=== PATIENT | male | born 1995 | race American Indian/Alaskan Native ===

== ENCOUNTER 2018-01-08 12:56 | Emergency (ER) | payer SELFPAY ==
[2018-01-08 17:28] VITALS: BP 125/83
--- NOTE | 2018-01-08 19:01 | Emergency Department Report ---
ED Male HPI - General Chief complaint: Urogenital-Male Stated complaint: CHECK UP Time Seen by Provider: 01/08/18 18:13 Source: patient Mode of arrival: Ambulatory Limitations: No Limitations - History of Present Illness Initial comments: This is a 22-year-old male patient here complaining of lump to the scrotal area 2 weeks. He denies any pain. He states that he is having clear discharge and he wants to be treated for STD. He does have unsafe sex but does not know if the person that he was with has similar symptoms. Denies any pain. Denies any nausea or vomiting. Denies any abdominal back pain. Denies any fever or chills. Patient reports he has asthma as a child. No [id number] medication taken any tear to be evaluated. MD Complaint: testicle swelling, penile discharge Onset/Timin -: week(s) Location: right testicle Radiation: none Severity scale (0 -10): 0 new sexual partner discharge, mass, other (testicular swelling). denies: rash, urinary retention, blood in urine, dysuria, fever, nausea/vomiting, incontinence - Related Data Sexually active: Yes Previous Rx's Medication Instructions Recorded Last Taken Type Ciprofloxacin HCl [Ciprofloxacin 500 mg PO Q12HR 10 Days #20 tab 01/08/18 Unknown Rx TAB] Allergies Allergy/AdvReac Type Severity Reaction Status Date / Time No Known Allergies Allergy Unverified 01/08/18 13:22 ED Review of Systems ROS: Stated complaint: CHECK UP Other details as noted in HPI Constitutional: denies: chills, fever ENT: denies: throat pain Respiratory: denies: cough, shortness of breath, SOB with exertion, SOB at rest , wheezing Cardiovascular: denies: chest pain, palpitations, edema, syncope Gastrointestinal: denies: abdominal pain, nausea, vomiting, diarrhea, constipation, hematemesis, hematochezia Genitourinary: discharge, testicular mass. denies: urgency, dysuria, frequency , hematuria, testicular pain Musculoskeletal: denies: back pain, joint swelling, arthralgia, myalgia Skin: denies: rash, lesions Neurological: denies: headache ED Past Medical Hx - Past Medical History Previous Medical History?: Yes Hx Asthma: Yes (as a child) - Surgical History Past Surgical History?: No - Family History Family history: no significant - Social History Smoking Status: Never Smoker Substance Use Type: None - Medications Home Medications: Home Medications Medication Instructions Recorded Confirmed Last Taken Type Ciprofloxacin HCl [Ciprofloxacin 500 mg PO Q12HR 10 Days #20 tab 01/08/18 Unknown Rx TAB] ED Physical Exam - General Limitations: No Limitations General appearance: alert, in no apparent distress - Head Head exam: Present: atraumatic, normocephalic, normal inspection - Eye Eye exam: Present: normal appearance, PERRL, EOMI Pupils: Present: normal accommodation - ENT ENT exam: Present: normal exam, normal orophraynx, mucous membranes moist - Neck Neck exam: Present: normal inspection, full ROM, other (no C-spine tenderness). Absent: tenderness, lymphadenopathy - Respiratory Respiratory exam: Present: normal lung sounds bilaterally. Absent: respiratory distress, chest wall tenderness - Cardiovascular Cardiovascular Exam: Present: regular rate, normal rhythm, normal heart sounds. Absent: systolic murmur, diastolic murmur - GI/Abdominal GI/Abdominal exam: Present: soft, normal bowel sounds. Absent: distended, tenderness, guarding, rebound, rigid, organomegaly, mass, bruit, pulsatile mass , hernia - exam: Present: urethral discharge. Absent: normal inspection, testicular tenderness, vertical testicular lie External exam: Absent: normal external exam, erythema, swelling, lesions, lacerations, ecchymosis, bleeding - Expanded Exam Expanded Male exam: Absent: phimosis, paraphimosis, penile swelling, induration, erythema, perineal induration, balanitis, priapism exam: Testicular Mass: Right (nontender to palpate.), Cremasteric Reflex Present: Left, Right - Extremities Exam Extremities exam: Present: normal inspection, full ROM, normal capillary refill , other (clubbing, cyanosis or edema. +2 pulses all extremities). Absent: tenderness, pedal edema, joint swelling, calf tenderness - Back Exam Back exam: Present: normal inspection, full ROM. Absent: tenderness, CVA tenderness (R), CVA tenderness (L), muscle spasm, paraspinal tenderness, vertebral tenderness, rash noted - Neurological Exam Neurological exam: Present: alert, oriented X3, normal gait - Psychiatric Psychiatric exam: Present: normal affect, normal mood - Skin Skin exam: Present: warm, dry, intact, normal color. Absent: rash ED Course Vital Signs 01/08/18 01/08/18 13:16 17:28 Temperature 98.4 F 98.6 F Pulse Rate 72 66 Respiratory 18 18 Rate Blood Pressure 122/78 125/83 O2 Sat by Pulse 99 100 Oximetry - Reevaluation(s) Reevaluation #1: 01/08/18 21:37 Patient received Rocephin 1 g IM to cover urinary tract infection and gonorrhea. He received azithromycin 1 g by mouth to cover chlamydia. No adverse reaction from medication. I discussed his ultrasound results and urinalysis result with family voice understanding ED Medical Decision Making - Lab Data Lab Results 01/08/18 Range/Units Unknown Urine Color Yellow (Yellow) Urine Turbidity Clear (Clear) Urine pH 5.0 (5.0-7.0) Ur Specific [place] 1.027 (1.003-1.030) Urine Protein <15 mg/dl (Negative) mg/dL Urine Glucose (UA) Neg (Negative) mg/dL Urine Ketones Neg (Negative) mg/dL Urine Blood Neg (Negative) Urine Nitrite Neg (Negative) Urine Bilirubin Neg (Negative) Urine Urobilinogen 2.0 (<2.0) mg/dL Ur Leukocyte Esterase Sm (Negative) Urine WBC (Auto) 26.0 H (0.0-6.0) /HPF Urine RBC (Auto) 4.0 (0.0-6.0) /HPF U Epithel Cells (Auto) < 1.0 (0-13.0) /HPF Calcium Oxalate Crystal 3+ Urine Mucus 3+ /HPF Urine culture pending - Radiology Data Radiology results: report reviewed Doppler ultrasound of testicle dictated by radiologist and report reviewed by myself. Please see report below. Patient: LESLIE MONAE MR#: [id number] : 1995 Acct:[id number] Age/Sex: 22 / M ADM Date: 01/08/18 Loc: ED Attending Dr: Ordering Physician: ASHWINI FERGUSON Date of Service: 01/08/18 Procedure(s): US testicular doppler comp Accession Number(s): [id number] cc: ASHWINI FERGUSON FINAL REPORT PROCEDURE: Scrotal ultrasound. TECHNIQUE: Real-time lozoya-scale and color flow Doppler sonography in multiple planes of the scrotum, testicles, and epididymes was performed. Velocity spectral waveform analysis Doppler imaging of the arterial inflow and venous outflow of the testicles was performed with image documentation. CPT 26781 and 48729 HISTORY: Testicular mass. COMPARISON: No prior studies are available for comparison. FINDINGS: Both testes have uniform echogenicity. There are no focal masses. There is normal testicular blood flow demonstrated by color flow imaging and Doppler spectral analysis. There is a large cyst in the head of the right epididymis. This measures 1.3 centimeters x 1.0 centimeters x 1.5 centimeters. The left epididymal head appears normal. IMPRESSION: Large cyst in the head of the right epididymis. Otherwise normal study. Transcribed By: MRM Dictated By: JUANA GUZMÁN MD Electronically Authenticated By: JUANA GUZMÁN MD Signed Date/Time: 01/08/182022 DD/ 22 TD/TT: 01/08/182022 - Medical Decision Making ED course This is a 22-year-old male here complaining of penile discharge and possible exposure to STD and requested to be treated. He is unsure as new partner have similar symptoms because he did not ask. He is also reporting that he's been having a lump to his scrotal area 2 weeks on the right side. Patient is here to be evaluated. I saw and examined patient. He has 1 cm x 1.5 cm indurated area without any fluctuance, round to right scrotal area. Nontender to palpate. Urinalysis reveal positive white blood cell and trace leukocyte Estrace without any bacteria. Urine culture sent. Patient had testicular ultrasound that was dictated by radiologist and report reviewed by myself and this shows that there is a large cysts in the head of the right epididymis. The left epididymal head appears normal. No obstruction and blood flow. I discussed urinalysis results and ultrasound results the patient and he voiced understanding. I also discussed need to follow-up the urologist. Patient treated empirically for STD due to penile discharge and he was also covered for UTI. He had no adverse reaction from medication A/P 1: Penile discharge in male concern for STD-patient just be treated empirically so he was given Rocephin 1 g IM in emergency room to cover gonorrhea and he has TIA so this will cover UTI also. 2: Acute cystitis without hematuria-Rocephin 1 g IM, will send home on ciprofloxacin. UA positive for white blood cell and leukocyte Estrace. Urine culture sent 3: Right epididymal cyst-testicular ultrasound positive for right epididymal cyst otherwise normal. Patient will be referred to urologist. Patient educated and diagnosis, ultrasound and urinalysis results. STD treatment, medication and need to follow up with urologist for management of epididymal cysts. Referral to urologist Referral to [facility] primary care Patient discharged home in stable condition with prescription for ciprofloxacin. Vital signs are stable he's afebrile and is nontoxic in appearance. He is to follow up with urologist and [facility] in 2 days. I also discussed with him he needs to have STD testing either at this [facility] or [facility] in 7-10 days and also repeat urinalysis and he voiced understanding. Pt instructed to return to emergency room if his symptoms worsen and he voiced understanding. - Differential Diagnosis testicular mass, testicular cyst, UTI, STD. Critical care attestation.: If time is entered above; I have spent that time in minutes in the direct care of this critically ill patient, excluding procedure time. ED Disposition Clinical Impression: Epididymal cyst, Abnormal penile discharge, Concern about STD in male without diagnosis UTI (urinary tract infection) Qualifiers: Urinary tract infection type: acute cystitis Hematuria presence: without hematuria Qualified Code(s): N30.00 - Acute cystitis without hematuria Disposition: TO HOME OR SELFCARE Is pt being admited?: No Does the pt Need Aspirin: No Condition: Stable Instructions: Urinary Tract Infection in Men (ED), Safe Sex (ED), Sexually Transmitted Diseases (ED) Additional Instructions: You have a cyst in right epididymal area which is located in your right scrotal area and he'll need to follow up with urologist as instructed and discharge instruction paperwork. a cyst is a fluid-filled pockets and this is not bad but you will probably need to have it drained Please follow up with [facility] and or [facility] in 7-10 days for repeat urinalysis and for STD test Increase her fluid intake You were treated for gonorrhea and chlamydia in emergency room and will not need another treatment. Please refrain from having sexual activity until you find out the results of your STD testing. Please take ciprofloxacin and this will treat urinary tract infection. If his symptoms worsen, return to the emergency room Please let your sexual partner know that you were treated for STD in emergency room due to penile discharge and they'll need to get checked. A spermatocele epididymal cyst is a painless, fluid-filled cyst of the epididymis. It can be palpated as distinct from the testis and typically transilluminates as a cystic mass. Prescriptions: Ciprofloxacin HCl [Ciprofloxacin TAB] 500 mg PO Q12HR 10 Days #20 tab Referrals: [facility] [Outside] - [facility] - [facility]10 days [facility] [Provider Group] - 01/10/18 Forms: Work/School Release Form(ED)
[2018-01-08 19:21] LABS: Bilirubin,Urine NEG (Negative); Blood,Urine NEG (Negative); Calcium Oxalate Crystals,Urine 3+; Color,Urine Yellow (Yellow); Mucus,Urine 3+ /HPF; Protein,Urine <15 mg/dL mg/dL (Negative)
--- NOTE | 2018-01-08 20:28 | Ultrasound Report ---
FINAL REPORT PROCEDURE: Scrotal ultrasound. TECHNIQUE: Real-time lozoya-scale and color flow Doppler sonography in multiple planes of the scrotum, testicles, and epididymes was performed. Velocity spectral waveform analysis Doppler imaging of the arterial inflow and venous outflow of the testicles was performed with image documentation. CPT 85413 and 18197 HISTORY: Testicular mass. COMPARISON: No prior studies are available for comparison. FINDINGS: Both testes have uniform echogenicity. There are no focal masses. There is normal testicular blood flow demonstrated by color flow imaging and Doppler spectral analysis. There is a large cyst in the head of the right epididymis. This measures 1.3 centimeters x 1.0 centimeters x 1.5 centimeters. The left epididymal head appears normal. IMPRESSION: Large cyst in the head of the right epididymis. Otherwise normal study.
[2018-01-08] MEDS ORDERED: ZITHROMAX PO ONE (21:10)
[2018-01-08] MEDS ORDERED: XYLOCAINE 1% MPF 5 mL INFILTRATI ONE (21:10)
[2018-01-08] MEDS ORDERED: ROCEPHIN IM STA (21:10)
== END 2018-01-08 22:10 | disposition home or self-care (01) ==
LOC: ED 12:56
DX: N50.3 Cyst of epididymis (principal); N30.00 Acute cystitis without hematuria; R36.9 Urethral discharge, unspecified; J45.909 Unspecified asthma, uncomplicated
CPT/HCPCS: 81001; 87086; 93975; 96372; 99284; J0696

== ENCOUNTER 2018-11-19 16:54 | Emergency (ER) | payer BC ==
[2018-11-19] MEDS ORDERED: TYLENOL PO ONE (17:13)
--- NOTE | 2018-11-19 17:13 | Emergency Department Report ---
Blank Doc - Documentation Documentation: This is a 23-year-old male that presents with abdominal pain with nausea vomit ing. Febrile in triage. This initial assessment/diagnostic orders/clinical plan/treatment(s) is/are subject to change based on patient's health status, clinical progression and re- assessment by fellow clinical providers in the ED. Further treatment and workup at subsequent clinical providers discretion. Patient/guardians urged not to elope from the ED as their condition may be serious if not clinically assessed and managed. Initial orders include: 1- Patient sent to [facility] for further evaluation and treatment 2- labs 3- UA 4- Tylenol
[2018-11-19 17:14] VITALS: BP 133/87
[2018-11-19] MEDS ORDERED: TYLENOL ONE (17:16)
[2018-11-19 17:40] LABS: Hematocrit 44.2 % (35.5-45.6); Hemoglobin 14.9 gm/dl (11.8-15.2); Mean Corpuscular HGB Conc 34 % (32-34); Mean Corpuscular Volume 88 fl (84-94); Platelet Count 232 K/mm3 (140-440); Red Blood Count 5.02 M/mm3 (3.65-5.03); Red Cell Distribution Width 12.2 % (13.2-15.2)
[2018-11-19 18:01] LABS: Alanine Aminotransferase 13 units/L (7-56); BUN/Creatinine Ratio 6; Bilirubin,Direct < 0.2 mg/dL (0-0.2); Blood Urea Nitrogen 7 mg/dL (9-20); Calcium 9.1 mg/dL (8.4-10.2); Hemolysis Index 8
[2018-11-19 18:55] LABS: Basophils % (Manual) 0 % (0.0-1.8); Eosinophils % (Manual) 0 % (0.0-4.3); Total Cells Counted 100
[2018-11-19 18:56] LABS: Giant Platelets 1+; Platelet Estimate 1; RBC Morphology Normal
[2018-11-19 19:29] LABS: Bilirubin,Urine NEG (Negative); Blood,Urine MOD (Negative); Color,Urine Yellow (Yellow); Mucus,Urine 3+ /HPF; Protein,Urine <15 mg/dL mg/dL (Negative); Urobilinogen,Urine < 2.0 mg/dL (<2.0)
[2018-11-19] MEDS ORDERED: ZOFRAN IV ONE (19:54)
[2018-11-19] MEDS ORDERED: NACL 0.9% 1000 ML 1,000 ML IV ONE (19:54)
--- NOTE | 2018-11-19 21:45 | Cat Scan Report ---
PROCEDURE: CT ABDOMEN PELVIS W CON TECHNIQUE: Computerized axial tomography of the abdomen and pelvis was performed after the IV inject ion of iodinated nonionic contrast. CT DOSE LENGTH PRODUCT: 1476.2 mGycm HISTORY: RLQ Pain COMPARISONS: None . FINDINGS: Liver demonstrates a small hypodense lesion measuring 9 mm located in segment 6 right lobe. Spleen, p ancreas and adrenal glands are within normal limits. Bilateral kidneys demonstrate uniform and smooth without hydronephrosis. Urinary bladder is empty. Aorta is of normal caliber. Minimal degree free fl uid is noted in the pelvic cavity. There is no free air. Gallbladder is unremarkable. Small bowel loo ps are within normal limits. Air-fluid levels are noted in transverse colon. Mild degree colonic wall thickening is noted. Appendix is 5 mm in thickness without any periappendiceal fat induration. IMPRESSION: Thickened colonic lua with air-fluid levels most likely represent nonspecific colitis. Minimal degree free fluid is noted in the pelvic cavity A small 9 mm hypodense lesion of right lobe liver is a nonspecific finding. Ultrasound evaluation and follow-up studies are recommended. This document is electronically signed by Jerome Powers MD., Nov 19 2018 09:43:49 PM ET
--- NOTE | 2018-11-19 22:18 | Emergency Department Report ---
ED Abdominal Pain HPI - General Chief Complaint: Nausea/Vomiting/Diarrhea Stated Complaint: STOMACH VIRUS Time Seen by Provider: 11/19/18 17:12 Source: patient Mode of arrival: Ambulatory Limitations: No Limitations - History of Present Illness Initial Comments: Respiratory failure -[place] male who presents with nausea vomiting abdominal pain 1 week patient states low-grade fever there is no nausea vomiting at this time no fever at this time primary complaint is diarrhea patient is tolerating by mouth intake and this time however MD Complaint: abdominal pain Onset/Timin -: week(s) Location: diffuse Radiation: LLQ, RLQ Migration to: no migration Severity scale (0 -10): 7 Quality: cramping Consistency: constant Improves With: nothing Worsens With: eating Associated Symptoms: nausea, vomiting, diarrhea. denies: fever, chills, cons tipation, dysuria, hematemesis, melena - Related Data Previous Rx's Medication Instructions Recorded Last Taken Type Ciprofloxacin HCl [Ciprofloxacin 500 mg PO Q12HR 10 Days #20 tab 01/08/18 Unknown Rx TAB] Ciprofloxacin HCl [Ciprofloxacin 500 mg PO BID 10 Days #20 tab 11/19/18 Unknown Rx TAB] Dicyclomine [Bentyl] 10 mg PO QID PRN #30 capsule 11/19/18 Unknown Rx Omeprazole 20 mg PO DAILY #30 capsule. 11/19/18 Unknown Rx metroNIDAZOLE [Flagyl] 500 mg PO Q8HR 10 Days #30 tablet 11/19/18 Unknown Rx Allergies Allergy/AdvReac Type Severity Reaction Status Date / Time No Known Allergies Allergy Verified 11/19/18 17:04 ED Review of Systems ROS: Stated complaint: STOMACH VIRUS Other details as noted in HPI Constitutional: denies: chills, fever Eyes: denies: eye pain, eye discharge, vision change ENT: denies: ear pain, throat pain Respiratory: denies: cough, shortness of breath, wheezing Cardiovascular: denies: chest pain, palpitations Endocrine: no symptoms reported Gastrointestinal: abdominal pain, nausea, vomiting. denies: diarrhea, constipation, hematemesis, melena, hematochezia Genitourinary: denies: urgency, dysuria Musculoskeletal: denies: back pain, joint swelling, arthralgia Skin: denies: rash, lesions Neurological: denies: headache, weakness, paresthesias Psychiatric: denies: anxiety, depression Hematological/Lymphatic: denies: easy bleeding, easy bruising ED Past Medical Hx - Past Medical History Previous Medical History?: No Hx Asthma: Yes (as a child) - Surgical History Past Surgical History?: No - Social History Smoking Status: Never Smoker Substance Use Type: None - Medications Home Medications: Home Medications Medication Instructions Recorded Confirmed Last Taken Type Ciprofloxacin HCl [Ciprofloxacin 500 mg PO Q12HR 10 Days #20 tab 01/08/18 Unknown Rx TAB] Ciprofloxacin HCl [Ciprofloxacin 500 mg PO BID 10 Days #20 tab 11/19/18 Unknown Rx TAB] Dicyclomine [Bentyl] 10 mg PO QID PRN #30 capsule 11/19/18 Unknown Rx Omeprazole 20 mg PO DAILY #30 capsule. 11/19/18 Unknown Rx metroNIDAZOLE [Flagyl] 500 mg PO Q8HR 10 Days #30 tablet 11/19/18 Unknown Rx ED Physical Exam - General Limitations: No Limitations General appearance: alert, in no apparent distress - Head Head exam: Present: atraumatic, normocephalic - Eye Eye exam: Present: normal appearance, PERRL, EOMI Pupils: Present: normal accommodation - ENT ENT exam: Present: normal orophraynx, mucous membranes moist - Neck Neck exam: Present: normal inspection, full ROM. Absent: tenderness, lymphadenopathy, thyromegaly - Respiratory Respiratory exam: Present: normal lung sounds bilaterally. Absent: respiratory distress, wheezes, stridor, chest wall tenderness - Cardiovascular Cardiovascular Exam: Present: regular rate, normal rhythm, normal heart sounds. Absent: systolic murmur, diastolic murmur, rubs, gallop - GI/Abdominal GI/Abdominal exam: Present: soft, normal bowel sounds. Absent: distended, tenderness (peiumbillical), guarding, rebound, rigid, bruit, hernia - Expanded GI/Abdominal Exam Expanded GI/Abdominal exam: Absent: psoas sign, obturator sign, heel tap sign, Tian's sign, Rovsing's sign, tenderness at Mcburney's Point, ascites - Rectal Rectal exam: Present: deferred - Extremities Exam Extremities exam: Present: normal inspection - Back Exam Back exam: Present: normal inspection, full ROM. Absent: tenderness, CVA tenderness (R), CVA tenderness (L), muscle spasm, rash noted - Neurological Exam Neurological exam: Present: alert, oriented X3, CN II-XII intact, normal gait, reflexes normal - Psychiatric Psychiatric exam: Present: normal affect, normal mood - Skin Skin exam: Present: warm, dry, intact, normal color. Absent: rash ED Course Vital Signs 11/19/18 17:12 Temperature 100.9 F H Pulse Rate 112 H Respiratory 16 Rate Blood Pressure 133/87 O2 Sat by Pulse 100 Oximetry ED Medical Decision Making - Lab Data Result diagrams: 11/19/18 17:18 11/19/18 17:18 Labs 11/19/18 11/19/18 11/19/18 17:18 17:18 17:18 WBC 6.7 RBC 5.02 Hgb 14.9 Hct 44.2 MCV 88 MCH 30 MCHC 34 RDW 12.2 L Plt Count 232 [place] % (Auto) Licensed Occupational Therapy Assistant Add Manual Diff Complete Total Counted 100 Seg Neuts % (Manual) 67.0 Band Neutrophils % 0 Lymphocytes % (Manual) 22.0 Reactive Lymphs % (Man) 0 Monocytes % (Manual) 11.0 H Eosinophils % (Manual) 0 Basophils % (Manual) 0 Metamyelocytes % 0 Myelocytes % 0 Promyelocytes % 0 Blast Cells % 0 Nucleated RBC % Not Reportable Seg Neutrophils # Man 4.5 Band Neutrophils # 0.0 Lymphocytes # (Manual) 1.5 Abs React Lymphs (Man) 0.0 Monocytes # (Manual) 0.7 Eosinophils # (Manual) 0.0 Basophils # (Manual) 0.0 Metamyelocytes # 0.0 Myelocytes # 0.0 Promyelocytes # 0.0 Blast Cells # 0.0 WBC Morphology Not Reportable TNR Hypersegmented Neuts Not Reportable Hyposegmented Neuts Not Reportable Hypogranular Neuts Not Reportable Smudge Cells Not Reportable Toxic Granulation Not Reportable Toxic Vacuolation Not Reportable Dohle Bodies Not Reportable Pelger-Huet Anomaly Not Reportable Ruthann Rods Not Reportable Platelet Estimate 1 Clumped Platelets Not Reportable Plt Clumps, EDTA Not Reportable Large Platelets Not Reportable Giant Platelets 1+ Platelet Satelliting Not Reportable Plt Morphology Comment Not Reportable RBC Morphology Normal Dimorphic RBCs Not Reportable Polychromasia Not Reportable Hypochromasia Not Reportable Poikilocytosis Not Reportable Anisocytosis Not Reportable Microcytosis Not Reportable Macrocytosis Not Reportable Spherocytes Not Reportable Pappenheimer Bodies Not Reportable Sickle Cells Not Reportable Target Cells Not Reportable Tear Drop Cells Not Reportable Ovalocytes Not Reportable Helmet Cells Not Reportable [place] Bodies Not Reportable [place] Rings Not Reportable Marcia Cells Not Reportable Bite Cells Not Reportable Crenated Cell Not Reportable Elliptocytes Not Reportable Acanthocytes (Spur) Not Reportable Rouleaux Not Reportable Hemoglobin C Crystals Not Reportable Schistocytes Not Reportable Malaria parasites Not Reportable Emilio Bodies Not Reportable Hem Pathologist Commnt No Sodium 137 Potassium 3.7 Chloride 98.2 Carbon Dioxide 25 Anion Gap 18 BUN 7 L Creatinine 1.1 Estimated GFR > 60 BUN/Creatinine Ratio 6 Glucose 99 Calcium 9.1 Total Bilirubin 0.40 Direct Bilirubin < 0.2 Indirect Bilirubin 0.2 AST 15 ALT 13 Alkaline Phosphatase 49 Total Protein 7.1 Albumin 4.0 Albumin/Globulin Ratio 1.3 Lipase 25 Urine Color Urine Turbidity Urine pH Ur Specific [place] Urine Protein Urine Glucose (UA) Urine Ketones Urine Blood Urine Nitrite Urine Bilirubin Urine Urobilinogen Ur Leukocyte Esterase Urine WBC (Auto) Urine RBC (Auto) U Epithel Cells (Auto) Urine Mucus 11/19/18 18:06 WBC RBC Hgb Hct MCV MCH MCHC RDW Plt Count [place] % (Auto) Add Manual Diff Total Counted Seg Neuts % (Manual) Band Neutrophils % Lymphocytes % (Manual) Reactive Lymphs % (Man) Monocytes % (Manual) Eosinophils % (Manual) Basophils % (Manual) Metamyelocytes % Myelocytes % Promyelocytes % Blast Cells % Nucleated RBC % Seg Neutrophils # Man Band Neutrophils # Lymphocytes # (Manual) Abs React Lymphs (Man) Monocytes # (Manual) Eosinophils # (Manual) Basophils # (Manual) Metamyelocytes # Myelocytes # Promyelocytes # Blast Cells # WBC Morphology Hypersegmented Neuts Hyposegmented Neuts Hypogranular Neuts Smudge Cells Toxic Granulation Toxic Vacuolation Dohle Bodies Pelger-Huet Anomaly Ruthann Rods Platelet Estimate Clumped Platelets Plt Clumps, EDTA Large Platelets Giant Platelets Platelet Satelliting Plt Morphology Comment RBC Morphology Dimorphic RBCs Polychromasia Hypochromasia Poikilocytosis Anisocytosis Microcytosis Macrocytosis Spherocytes Pappenheimer Bodies Sickle Cells Target Cells Tear Drop Cells Ovalocytes Helmet Cells Crockett-[place] Bodies [place] Cells Bite Cells Crenated Cell Elliptocytes Acanthocytes (Spur) Rouleaux Hemoglobin C Crystals Schistocytes Malaria parasites Emilio Bodies Hem Pathologist Commnt Sodium Potassium Chloride Carbon Dioxide Anion Gap BUN Creatinine Estimated GFR BUN/Creatinine Ratio Glucose Calcium Total Bilirubin Direct Bilirubin Indirect Bilirubin AST ALT Alkaline Phosphatase Total Protein Albumin Albumin/Globulin Ratio Lipase Urine Color Yellow Urine Turbidity Clear Urine pH 6.0 Ur Specific [place] 1.017 Urine Protein <15 mg/dl Urine Glucose (UA) Neg Urine Ketones 20 Urine Blood Mod Urine Nitrite Neg Urine Bilirubin Neg Urine Urobilinogen < 2.0 Ur Leukocyte Esterase Neg Urine WBC (Auto) 1.0 Urine RBC (Auto) 3.0 U Epithel Cells (Auto) < 1.0 Urine Mucus 3+ - Radiology Data Radiology results: report reviewed, image reviewed (this patient now) Ordering Physician: CHARMAINE HINDS NP Date of Service: 11/19/18 Procedure(s): CT abdomen pelvis w con Accession Number(s): [id number] cc: CHARMAINE HINDS NP PROCEDURE: CT ABDOMEN PELVIS W CON TECHNIQUE: Computerized axial tomography of the abdomen and pelvis was performed after the IV injection of iodinated nonionic contrast. CT DOSE LENGTH PRODUCT: 1476.2 mGycm HISTORY: RLQ Pain COMPARISONS: None . FINDINGS: Liver demonstrates a small hypodense lesion measuring 9 mm located in segment 6 right lobe. Spleen, pancreas and adrenal glands are within normal limits. Bilateral kidneys demonstrate uniform and smooth without hydronephrosis. Urinary bladder is empty. Aorta is of normal caliber. Minimal degree free fluid is noted in the pelvic cavity. There is no free air. Gallbladder is unremarkable. Small bowel loops are within normal limits. Air-fluid levels are noted in transverse colon. Mild degree colonic wall thickening is noted. Appendix is 5 mm in thickness without any periappendiceal fat induration. IMPRESSION: Thickened colonic lua with air-fluid levels most likely represent nonspecific colitis. Minimal degree free fluid is noted in the pelvic cavity A small 9 mm hypodense lesion of right lobe liver is a nonspecific finding. Ultrasound evaluation and follow-up studies are recommended. This document is electronically signed by Izzy Powers MD., Nov 19 2018 09:43:49 PM ET Transcribed By: [facility] [place] Dictated By: IZZY POWERS Electronically Authenticated By: IZZY POWERS Signed Date/Time: 11/19/182144 DD/ 45 TD/TT: 11/19/182045 - Medical Decision Making ct abd and pelvis suggestive of coliits, pt advised of same, pt offered admission, advises he can no longer wait, plan: patient is tolerating po chall enge, no n/v no fever , heart reat 87, plan: cipro , flagyl , omeprazole, bentyl, follow up with GI in 2-3 days return to ed if symptoms worsen, pt verbalized agreement and understanding of discharge plan. pt for dc to home in stable condition at this time. Critical care attestation.: If time is entered above; I have spent that time in minutes in the direct care of this critically ill patient, excluding procedure time. ED Disposition Clinical Impression: Colitis Abdominal pain Qualifiers: Abdominal location: lower abdomen, unspecified Qualified Code(s): R10.30 - Lower abdominal pain, unspecified Disposition: DC-01 TO HOME OR SELFCARE Is pt being admited?: No Does the pt Need Aspirin: No Condition: Stable Instructions: Infectious Colitis (ED), Abdominal Pain (ED) Prescriptions: Dicyclomine [Bentyl] 10 mg PO QID PRN #30 capsule PRN Reason: abd spasm Ciprofloxacin HCl [Ciprofloxacin TAB] 500 mg PO BID 10 Days #20 tab metroNIDAZOLE [Flagyl] 500 mg PO Q8HR 10 Days #30 tablet Omeprazole 20 mg PO DAILY #30 capsule. Referrals: [facility] [Provider Group] - 3-5 Days Forms: Work/School Release Form(ED) Time of Disposition: 22:29
== END 2018-11-19 22:35 | disposition home or self-care (01) ==
LOC: ED 16:54
DX: K52.9 Noninfective gastroenteritis and colitis, unspecified (principal); J45.909 Unspecified asthma, uncomplicated
CPT/HCPCS: 36415; 74177; 80048; 80076; 81001; 83690; 85007; 85025; 96361; 96374; 99284; J2405; J7030; Q9967

== ENCOUNTER 2019-03-15 14:52 | Emergency (ER) | payer BC ==
[2019-03-15 15:17] VITALS: BP 124/76
[2019-03-15] MEDS ORDERED: BOOSTRIX IM ONE (15:17)
--- NOTE | 2019-03-15 15:18 | Event Note ---
ED Screening Note Date of service: 03/15/19 Time: 15:14 ED Screening Note: This is a 23 y.o. M. that presents to the ER with left great toe avulsion and discharge. Patient states he bumped his toe 2 days ago at work and the toe nail came off. Tetanus not UTD. This initial assessment/diagnostic orders/clinical plan/treatment(s) is/are subject to change based on patients health status, clinical progression and re- assessment by fellow clinical providers in the ED. Further treatment and workup at subsequent clinical providers discretion. Patient/guardian urged not to elope from the ED as their condition may be serious if not clinically assessed and managed. Initial orders include: Tetanus vaccine ACC for further evaluation.
== END 2019-03-15 16:54 | disposition left against medical advice (07) ==
LOC: ED 14:52
DX: M79.672 Pain in left foot (principal); Z53.21 Procedure and treatment not carried out due to patient leaving prior to being seen by health care provider

== ENCOUNTER 2019-04-27 12:27 | Emergency (ER) | payer BC ==
[2019-04-27 12:55] VITALS: BP 128/71
--- NOTE | 2019-04-27 13:06 | Emergency Department Report ---
Chief Complaint: Urogenital-Male Stated Complaint: STD CHECK Time Seen by Provider: 04/27/19 12:52 - HPI History of Present Illness: This is a 23-year-old male nontoxic, well in appearance with no signs of distress presents to the ED for STD check. Patient stated that his partner called and said has STD. Patient stated he is asymptotic. Denies any penile discharge, testicular pain, or swelling. Patient denies any urinary symptoms. Patient denies any fever, chills, headache, nausea, vomiting, chest pain or shortness of breathe. denies any other symptoms or complaints. Denies any allergies or PMH. - Exam Vital Signs: Vital Signs 04/27/19 12:52 Temperature 98.6 F Pulse Rate 100 H Respiratory 20 Rate Blood Pressure 128/71 O2 Sat by Pulse 98 Oximetry Physical Exam: no abdominal pain. no back pain. no discharge. no urinary symptoms. MSE screening note: Focused history and physical exam performed. Due to findings the following was ordered: ED Medical Decision Making - Medical Decision Making This is a 23-year-old male that presents with nonmedical emergency complaint. Patient is just requested for a STD test. I gave patient many different referrals to follow-up with STD concerns. Patient was instructed to Follow-up with a primary care doctor in 3-5 days or if symptoms worsen and continue return to emergency room as soon as possible. At time of discharge, the patient does not seem toxic or ill in appearance. No acute signs of distress noted. Patient agrees to discharge treatment plan of care. No further questions noted by the patient. ED Disposition for MSE Clinical Impression: Possible exposure to STD Disposition: DC-01 TO HOME OR SELFCARE Is pt being admited?: No Does the pt Need Aspirin: No Condition: Stable Instructions: Safe Sex (ED) Additional Instructions: Follow-up with the referral that has been provided to you during the ED stay in 3-5 days or if symptoms worsen and continue return to emergency room as soon as possible. Referrals: PRIMARY [facility] [Referring] - 3-5 Days CALLI HOOVER MD [Staff Physician] - 3-5 Days [facility] [Outside] - 3-5 Days [facility] [Outside] - 3-5 Days
== END 2019-04-27 13:49 | disposition home or self-care (01) ==
LOC: ED 12:27
DX: Z20.2 Contact with and (suspected) exposure to infections with a predominantly sexual mode of transmission (principal)